=== PATIENT | female | born 1995 | race Caucasian/White ===

== ENCOUNTER 2017-02-06 06:51 | Emergency (ER) | payer SELFPAY ==
[~2017-02-06] VITALS: Ht 172.7 cm; Wt 59.6 kg
[2017-02-06] MEDS ORDERED: MIRENA1 EACH VAG (07:10)
== END 2017-02-06 08:21 | disposition short-term general hospital (02) ==
LOC: ER 06:51
DX: T19.2XXA Foreign body in vulva and vagina, initial encounter (principal); N39.0 Urinary tract infection, site not specified

== ENCOUNTER 2017-06-19 01:07 | Emergency (ER) | payer SELFPAY ==
[~2017-06-19] VITALS: Ht 172.7 cm; Wt 59.0 kg
[~2017-06-19 01:07] MED LIST: MIRENA1 EACH VAG
== END 2017-06-19 02:11 | disposition short-term general hospital (02) ==
LOC: ER 01:07
DX: N89.8 Other specified noninflammatory disorders of vagina (principal); R19.7 Diarrhea, unspecified
CPT/HCPCS: 87660